=== PATIENT | female | born 1980 | race Two or more races ===

== ENCOUNTER 2017-09-16 07:25 | Outpatient (CLI) | payer OTHER | END 2017-09-16 07:42 | disposition home or self-care (01) | LOC: SONOGRAMA 07:25 | DX: E04.1 Nontoxic single thyroid nodule (principal) ==

== ENCOUNTER 2018-04-07 08:04 | Outpatient (CLI) | payer OTHER | END 2018-04-07 08:10 | disposition home or self-care (01) | LOC: SONOGRAMA 08:04 | DX: E04.1 Nontoxic single thyroid nodule (principal) ==

== ENCOUNTER 2021-03-10 12:20 | Outpatient (CLI) | payer OTHER | END 2021-03-10 12:35 | disposition home or self-care (01) | LOC: RAD 12:20 | PROVIDERS: ATTEND Obstetrics & Gynecology | DX: R07.89 Other chest pain (principal) ==